=== PATIENT | female | born 1985 ===

== ENCOUNTER 2017-05-31 10:26 | Emergency (ER) | payer OTHER ==
[2017-05-31 12:06] VITALS: BP 117/76
--- NOTE | 2017-05-31 12:22 | UC ---
Lower Extremity/Ankle HPI - HPI Summary HPI Summary: right foot pain x 1 week , no know injury , pain is at the medial aspect of the right foot/ first metatarsal no swelling , no redness increase pain with walking and weight bearing - History of Current Complaint Chief Complaint: UCLowerExtremity Stated Complaint: RIGHT FOOT INJURY Time Seen by Provider: 05/31/17 11:43 Hx Obtained From: Patient Hx Last Menstrual Period: 05/13/17 Onset/Duration: Gradual Onset, Lasting Days - 7, Still Present Severity Initially: Moderate Severity Currently: Moderate Aggravating Factor(s): Standing, Ambulation Alleviating Factor(s): Nothing Able to Bear Weight: Yes - Allergies/Home Medications Allergies/Adverse Reactions: Allergies Allergy/AdvReac Type Severity Reaction Status Date / Time No Known Allergies Allergy Verified 05/31/17 11:57 Home Medications: Home Medications Norgestimate-Eth Estradiol(NF) [Ortho Tri-Cyclen (NF)] 1 tab PO BEDTIME [History Confirmed 05/31/17] PMH/Surg Hx/FS Hx/Imm Hx Previously Healthy: Yes - Surgical History Surgical History: None - Family History Known Family History: Negative: Diabetes - Social History Alcohol Use: Weekly Alcohol Amount: 4 times a week Substance Use Type: None Smoking Status (MU): Former Smoker Type: Cigarettes Amount Used/How Often: a few a day when she does smoke Review of Systems Constitutional: Negative Skin: Negative Eyes: Negative ENT: Negative All Other Systems Reviewed And Are Negative: Yes Physical Exam Triage Information Reviewed: Yes Appearance: Well-Appearing, No Pain Distress, Well-Nourished Vital Signs: Initial Vital Signs Temp 98.9 F 05/31/17 11:46 Pulse 54 05/31/17 11:46 Resp 16 05/31/17 11:46 BP 117/76 05/31/17 11:46 Pulse Ox 100 05/31/17 11:46 Vital Signs Reviewed: Yes Eyes: Positive: Conjunctiva Clear ENT: Positive: Normal ENT inspection, Hearing grossly normal, Pharynx normal Neck: Positive: Supple, Nontender, No Lymphadenopathy Respiratory: Positive: Chest non-tender, Lungs clear, Normal breath sounds Cardiovascular: Positive: RRR, No Murmur, Pulses Normal Musculoskeletal: Positive: Other: - right foot : no swelling , no erythema, + tenderness proximal 1st metatarsal bone Diagnostics - Laboratory Diagnostic Studies Completed/Ordered: normal xray of right foot Lower Extremity Course/Dx - Differential Dx/Diagnosis Provider Diagnoses: right foot pain Discharge - Discharge Plan Condition: Stable Disposition: HOME Patient Education Materials: Arthralgia (ED) Referrals: No Primary Care Phys,NOPCP [Primary Care Provider] - 7 Days Additional Instructions: right foot pain , normal xray cont. with rest, ice, naproxen 500 mg 2 x per day post op shoe , follow up with your pcp in 7 to 10 days if not better
--- NOTE | 2017-05-31 12:50 | RAD ---
Indication: Right foot pain. 3 views of the right foot demonstrates no fracture. No other bone or joint abnormality is identified. There may be some degenerative changes at the first cuneiform metatarsal joint. IMPRESSION: No fracture of the right foot is noted. Degenerative changes of the right first cuneiform first metatarsal joint may be present.
== END 2017-05-31 12:45 | disposition home or self-care (01) ==
LOC: UCCORT 10:26
DX: M79.671 Pain in right foot (principal); Z87.891 Personal history of nicotine dependence
CPT/HCPCS: 99212; G0463

== ENCOUNTER 2018-09-02 08:47 | Emergency (ER) | payer OTHER ==
[2018-09-02 09:26] VITALS: BP 120/90
--- NOTE | 2018-09-02 10:21 | UC ---
UC General HPI - HPI Summary HPI Summary: Pt presents with 3 complaints 1) pt with patch of dry skin on left cheek. Present x 1 week. mild itching, no drainage. no fever, chills Pt states has intermittently used lotion with mild improvement 2_ Pt with rash in b/l armpits. PT has used natural products, no shaviing but persists. Pt states seems moist at time. + pruritis. No drainage. No fever, chills. no h/o similar 3) 1 week vaginal discharge, thick white, pruritis pt is sexually active - no concern for or STDS, no lesions. no baths , douche, new products Pt with h/o yeast - states feels similar Pt's medications rviewed this visit - History of Current Complaint Chief Complaint: UCGeneralIllness Stated Complaint: PERSONAL Time Seen by Provider: 09/02/18 10:06 Hx Obtained From: Patient Hx Last Menstrual Period: 08/19/18 Onset/Duration: Gradual Onset Onset Severity: Mild Current Severity: None Pain Intensity: 0 - Allergy/Home Medications Allergies/Adverse Reactions: Allergies Allergy/AdvReac Type Severity Reaction Status Date / Time No Known Allergies Allergy Verified 09/02/18 09:22 Home Medications: Home Medications Cod Liver Oil 1 cap PO DAILY 09/02/18 [History Confirmed 09/02/18] L.acidoph,Paracasei, B.lactis [Probiotic] 1 each PO DAILY 09/02/18 [History Confirmed 09/02/18] Saccharomyces Boulardii [Digestive Probiotic] 250 mg PO BID 09/02/18 [History Confirmed 09/02/18] Vitamin THERAPEUTIC TAB* [Theragran TAB*] 1 tab PO DAILY 09/02/18 [History Confirmed 09/02/18] PMH/Surg Hx/FS Hx/Imm Hx Previously Healthy: Yes - Surgical History Surgical History: None - Family History Known Family History: Positive: Other - non contributory Negative: Diabetes - Social History Occupation: Employed Full-time - [employer] Alcohol Use: Weekly Alcohol Amount: 4 times a week Substance Use Type: None Smoking Status (MU): Former Smoker Type: Cigarettes Amount Used/How Often: a few a day when she does smoke Length of Time of Smoking/Using Tobacco: Some Day Smoker x 10 Years When Did the Patient Quit Smoking/Using Tobacco: 2015 - Immunization History Most Recent Influenza Vaccination: NOT CURRENT Review of Systems Constitutional: Negative Skin: Rash Genitourinary: Vaginal/Penile Discharge All Other Systems Reviewed And Are Negative: Yes Physical Exam - Summary Physical Exam Summary: Vital Signs Reviewed: Yes A+Ox3, no distress Eyes: Conjunctiva Clear, ANSLEY. EOM intact and full ENT: Hearing grossly normal TM x 2 clear, mmoist, uvula midline, no exudate, no erythema Neck: Positive: Supple Respiratory: Positive: No respiratory distress, No accessory muscle use + CTA throughout no w/r Cardiovascular: RRR nl s1, s2 no m/r CBT <2 sec abd soft + BS nt/nd no guarding, no distension vaginal exam: white, thicker discharge, no lesions, no odor mild erythema RN chaparahi Musculoskeletal Exam: PERALES x 4 without difficulty Strength Intact, ROM Intact Neurological: Positive: Alert, + sensation throughout Psychological: Positive: Normal Response To Family Skin: Positive: no ecchymosis, b/l axilla 2x2 cm erythema, flat, moist appearing, no drainage, fluctuance pruritis left cheek - pt with dry patch of skin 1cm no erythema, non tender c/w dry skin Triage Information Reviewed: Yes Vital Signs: Initial Vital Signs Temp 98.1 F 09/02/18 09:16 Pulse 72 09/02/18 09:16 Resp 18 09/02/18 09:16 BP 120/90 09/02/18 09:16 Pulse Ox 100 09/02/18 09:16 Course/Dx - Course Course Of Treatment: Pt with rash in b/l axilla - c/w yeast infection - clotrimazole cream - pcp f/u 2 weeks. Pt with dry appearing skin left cheek - no concern fr infection - recommend moisturize. Pt with vaginal d/ w - samples taken - will treat diflucan pt aware cultures pending - Differential Dx - Multi-Symptom Provider Diagnoses: fungal skin infection. vaginitis Discharge - Sign-Out/Discharge Documenting (check all that apply): Patient Departure All imaging exams completed and their final reports reviewed: No Studies - Discharge Plan Condition: Stable Disposition: HOME Prescriptions: Clotrimazole 1% CREAM* [Clotrimazole 1%*] 1 applic TOPICAL BID #1 tube Fluconazole [Diflucan 150 MG (NF)] 150 mg PO ONCE #1 tab Patient Education Materials: Yeast Infection (ED), Vaginitis (ED), Skin Yeast Infection (ED) Referrals: [facility]IAN REFERRAL [Outside] No Primary Care Phys,NOPCP [Primary Care Provider] - Additional Instructions: - Apply clotrimazole cream to your arm pit areas 2 times a day for 14 days - take 1 time dose of diflucan to treat a yeast infection. You have samples at the lab to test for vaginal infections. If you need a different treatment, you will receive a call from a care steam conditioning operator - You have been given the contact information for the physician referral center - contact for assistance with a new primary care doctor - Billing Disposition and Condition Condition: STABLE Disposition: Home
== END 2018-09-02 11:04 | disposition home or self-care (01) ==
LOC: UCCORT 08:47
DX: B36.9 Superficial mycosis, unspecified (principal); N76.0 Acute vaginitis; Z87.891 Personal history of nicotine dependence
CPT/HCPCS: 81003; 84702; 87480; 87491; 87510; 87591; 87661; 99212; G0463